=== PATIENT | female | born 1995 | race Hispanic/Latino ===

== ENCOUNTER 2024-03-09 23:09 | Emergency (ER) | payer OTHER, SELFPAY ==
--- OUTSIDE RECORDS SUMMARY | 2024-03-09 23:11 | XMS REPORT | Continuity of Care Document ---
Author Name Unknown Address [id number] thconnect Address [address] [address] [address] [place] [address] Care Team Providers Care Motor Brakeman Name Role Phone GC_GCBZW_Kadiyala_S Attending Clinician Unavaila ble GC_SWHAHL_Roman_M Attending Clinician Unavailabl e GC_GCBZW_Kadiyala_S Admitting Clinician Unavaila ble GC_SWHAHL_Roman_M Admitting Clinician Unavailabl e Payers Payer Name Policy Type Policy Number Effective Date Expirati on Date Source Encounters Start Date/Time End Date/Time Encounter Type Admission Type Attending Clinicians Care Facility Care Department Encounter ID Source 2023-04-17 00:00:00 2023-04-17 00:00:00 Outpatient GC_GCBZW_Ka diyala_S PRIV PRIV [id number] [facility] 2023-03-30 14:59:29 2023-03-30 14:59:29 Outpatient [facility] [id number] Jr Bo 2023-03-26 00:00:00 2023-03-26 00:00:00 Outpatient GC_SWHAHL_R oman_M PRIV PRIV [id number] [facility] 2023-03-20 00:00:00 2023-03-20 00:00:00 Outpatient GC_GCBZW_Ka diyala_S PRIV PRIV [id number] [facility] 2023-02-26 00:00:00 2023-02-26 00:00:00 Outpatient GC_SWHAHL_R oman_M PRIV PRIV [id number] [facility] 2023-02-20 00:00:00 2023-02-20 00:00:00 Outpatient GC_GCBZW_Ka diyala_S PRIV PRIV [id number] [facility] 2023-01-30 00:00:00 2023-01-30 00:00:00 Outpatient GC_SWHAHL_R oman_M PRIV PRIV [id number] [facility] 2023-01-22 00:00:00 2023-01-22 00:00:00 Outpatient GC_GCBZW_Ka diyala_S PRIV PRIV [id number] [facility] 2023-01-21 00:00:00 2023-01-21 00:00:00 Outpatient GC_SWHAHL_R oman_M PRIV PRIV [id number] [facility] 2023-01-14 00:00:00 2023-01-14 00:00:00 Outpatient GC_GCBZW_Ka diyala_S PRIV PRIV [id number] [facility] 2023-01-14 00:00:00 2023-01-14 00:00:00 Outpatient GC_GCBZW_Ka diyala_S PRIV PRIV [id number] [facility] 2023-01-06 00:00:00 2023-01-06 00:00:00 Outpatient GC_GCBZW_Ka diyala_S PRIV PRIV [id number] [facility] 2023-01-06 00:00:00 2023-01-06 00:00:00 Outpatient GC_GCBZW_Ka diyala_S PRIV PRIV [id number] [facility] 2023-01-06 00:00:00 2023-01-06 00:00:00 Outpatient GC_GCBZW_Ka diyala_S PRIV PRIV [id number] [facility] 2023-01-05 00:00:00 2023-01-05 00:00:00 Outpatient GC_GCBZW_Ka diyala_S PRIV PRIV [id number] [facility] 2022-12-18 00:00:00 2022-12-18 00:00:00 Outpatient GC_GCBZW_Ka byron_Maida [facility] [id number] [facility] 2022-04-20 09:06:25 2022-04-20 09:06:25 Outpatient [facility] [id number] Jr Bo
[2024-03-09] MEDS ORDERED: ONDANSETRON 4 MG (ODT) TAB ONE (23:21)
[2024-03-10 00:13] LABS: SARS-CoV-2 Antigen CONTROL BLUE LINE VIS/BG OK; SARS-CoV-2 Antigen Rapid Res Negative (Negative)
--- NOTE | 2024-03-10 00:54 | ER ---
Nurse's Notes [facility] Name: Bushra Quiros Age: 28 yrs Sex: Female : 1995 Arrival Date: 03/09/2024 Time: 23:09 Bed DX3 Private MD: Diagnosis: Acute upper respiratory infection, unspecified;Vomiting Presentation: 03/09 23:15 Chief complaint: Patient states: PT STATES AT APPROX BEGAN HAVING "FEVER", SORE THROAT, br2 NAUSEA/VOMITING (1), AB PAIN. Coronavirus screen: Client indicates they have traveled out of the [place] in the last 14 days. Ebola Screen: Patient denies exposure to infectious person. Initial Sepsis Screen: Does the patient meet any 2 criteria? No. Patient's initial sepsis screen is negative. Does the patient have a suspected source of infection? No. Patient's initial sepsis screen is negative. Risk Assessment: Do you want to hurt yourself or someone else? Patient reports no desire to harm self or others. Onset of symptoms was March 09, 2024 at 17:00. 23:15 Method Of Arrival: Ambulatory br2 23:15 Acuity: VALERY 3 br2 Triage Assessment: 23:15 General: Appears in no apparent distress. comfortable, Behavior is calm, cooperative. br2 Pain: Complains of pain in abdomen and back ALL OVER BODYACHES. EENT: No signs and/or symptoms were reported regarding the EENT system. Neuro: Level of Consciousness is awake, alert, obeys commands, Oriented to person, place, time, situation. Cardiovascular: Capillary refill < 3 seconds. Respiratory: Reports cough that is non-productive, Airway is patent Respiratory effort is even, unlabored, Respiratory pattern is regular, symmetrical. Historical: - Allergies: 23:18 No Known Allergies; br2 - Home Meds: 23:18 None [Active]; br2 - PMHx: 23:18 None; br2 - Immunization history:: Adult Immunizations up to date, Client reports receiving the 1st dose of the Covid vaccine, UNKNOWN. - Infectious Disease History:: Denies. - Social history:: Smoking status: Patient denies any tobacco usage or history of. Patient/guardian denies using alcohol, street drugs. - Family history:: not pertinent. - Hospitalizations: : No recent hospitalization is reported. Screenin:15 [facility] ED Fall Risk Assessment (Adult) History of falling in the last 3 months, br2 including since admission No falls in past 3 months (0 pts) Confusion or Disorientation No (0 pts) Intoxicated or Sedated No (0 pts) Impaired Gait No (0 pts) Mobility Assist Device Used No (0 pt) Altered Elimination No (0 pt) Score/Fall Risk Level 0 - 2 = Low Risk Oriented to surroundings. Abuse screen: Denies threats or abuse. Denies injuries from another. Nutritional screening: No deficits noted. Tuberculosis screening: No symptoms or risk factors identified. Assessment: 03/10 01:10 Reassessment: No changes from previously documented assessment. Patient and/or family vc1 updated on plan of care and expected duration. Pain level reassessed. Patient is alert, oriented x 3, equal unlabored respirations, skin warm/dry/pink. General: Appears in no apparent distress. uncomfortable, Behavior is calm, cooperative, appropriate for age. Pain: Complains of pain in back and abdomen. Neuro: Level of Consciousness is awake, alert, obeys commands, Oriented to person, place, time, situation, Appropriate for age. Cardiovascular: Heart tones S1 S2 present Patient's skin is warm and dry. Rhythm is sinus tachycardia. Respiratory: Airway is patent Respiratory effort is even, unlabored, Respiratory pattern is regular, symmetrical, Breath sounds are clear bilaterally. GI: No deficits noted. No signs and/or symptoms were reported involving the gastrointestinal system. : No deficits noted. No signs and/or symptoms were reported regarding the genitourinary system. EENT: Reports pain when swallowing. Vital Signs: 03/09 23:15 BP 132 / 88; Pulse 124; Resp 18; Temp 98.5(O); Pulse Ox 98% ; Weight 121.11 kg; Height br2 5 ft. 4 in. ; Pain 6/10; 03/10 01:00 BP 134 / 74; Pulse 102; Resp 18; Temp 99; Pulse Ox 99% ; vc1 03/09 23:15 Body Mass Index 45.83 (121.11 kg, 162.56 cm) br2 03/09 23:15 Pain Scale: Adult br2 ED Course: 03/09 23:11 Patient arrived in ED. jj6 23:14 Jean Juárez MD is Attending Physician. rn 23:15 Arm band placed on. br2 23:15 Patient has correct armband on for positive identification. Provided Education on: PLAN br2 OF CARE. 23:18 Triage completed. br2 23:24 SARS-COV-2 Antigen Rapid Sent. br2 23:24 Strep Sent. br2 23:24 Flu Sent. br2 03/10 00:10 XRAY Chest (1 view) In Process Unspecified. EDMS 01:09 No provider procedures requiring assistance completed. Patient did not have IV access vc1 during this emergency room visit. Administered Medications: 03/09 23:25 Drug: Ondansetron PO 4 mg PO once Route: PO; br2 03/10 01:00 Follow up: Response: No adverse reaction vc1 01:00 Drug: Promethazine PO 25 mg PO once Route: PO; vc1 01:00 Follow up: Response: Medication administered at discharge. vc1 01:00 Drug: Amoxicillin-Clavulanate PO 875 mg PO once Route: PO; vc1 01:00 Follow up: Response: Medication administered at discharge. vc1 Medication: 01:01 VIS not applicable for this client. vc1 Outcome: 00:54 Discharge ordered by . rn 01:10 Discharged to home ambulatory, vc1 01:10 Condition: good 01:10 Discharge instructions given to patient, Instructed on discharge instructions, follow up and referral plans. medication usage, Demonstrated understanding of instructions, follow-up care, medications, Prescriptions given X 2, 01:11 Patient left the ED. vc1 Signatures: Dispatcher [employer] EDOH Jean Juárez MD MD rn Jeffries, Jennifer jj6 Velvet Aldana RN RN vc1 Denia Holley RN RN br2
--- NOTE | 2024-03-10 00:54 | EDPHYS ---
Physician Documentation [facility] Name: Bushra Quiros Age: 28 yrs Sex: Female : 1995 Arrival Date: 03/09/2024 Time: 23:09 Bed DX3 Private MD: ED Physician Jean Juárez HPI: 03/09 23:44 This 28 yrs old Female presents to ER via Ambulatory with complaints of cough, rn sore throat. 23:44 The patient or guardian reports cough, flu symptoms. Onset: The symptoms/episode rn began/occurred today. Severity of symptoms: At their worst the symptoms were mild, in the emergency department the symptoms are unchanged. Associated signs and symptoms: Pertinent positives: fever, rhinorrhea, sore throat, vomiting, Pertinent negatives: chest pain, diarrhea. The patient has not experienced similar symptoms in the past. Patient reports feels like she got sick today. Reports subjective fever and chills, sore throat, cough, myalgias, nausea and vomited 1 time. Denies . Reports no chance of . No abdominal pain. No shortness of breath.. Historical: - Allergies: 23:18 No Known Allergies; br2 - Home Meds: 23:18 None [Active]; br2 - PMHx: 23:18 None; br2 - Immunization history:: Adult Immunizations up to date, Client reports receiving the 1st dose of the Covid vaccine, UNKNOWN. - Infectious Disease History:: Denies. - Social history:: Smoking status: Patient denies any tobacco usage or history of. Patient/guardian denies using alcohol, street drugs. - Family history:: not pertinent. - Hospitalizations: : No recent hospitalization is reported. ROS: 23:44 Constitutional: Positive for subjective fever and chills Eyes: Negative for injury, rn pain, redness, and discharge, Cardiovascular: Negative for chest pain, palpitations, and edema, Respiratory: Positive for cough, negative for shortness of breath Abdomen/GI: Negative for abdominal pain, positive for vomiting x 1 Back: Negative for injury and pain, : Negative for injury, bleeding, discharge, and swelling, MS/Extremity: Negative for injury and deformity, Skin: Negative for injury, rash, and discoloration, Neuro: Positive for headache and generalized malaise Exam: 23:44 Constitutional: This is a well developed, well nourished patient who is awake, alert, rn and in no acute distress. Cardiovascular: Tachycardic, regular. No pulse deficits. Respiratory: No increased work of breathing, no retractions or nasal flaring. Abdomen/GI: Soft, nontender, negative Wade, no focal tenderness or distention noted. No peritoneal signs or guarding noted. MS/ Extremity: Pulses equal, no cyanosis. Neuro: Awake and alert, GCS 15 was given Vital Signs: 23:15 BP 132 / 88; Pulse 124; Resp 18; Temp 98.5(O); Pulse Ox 98% ; Weight 121.11 kg; Height br2 5 ft. 4 in. ; Pain 6/10; 03/10 01:00 BP 134 / 74; Pulse 102; Resp 18; Temp 99; Pulse Ox 99% ; vc1 03/09 23:15 Body Mass Index 45.83 (121.11 kg, 162.56 cm) br2 03/09 23:15 Pain Scale: Adult br2 MDM: 03/09 23:14 Medical Screening Exam initiated rn 03/10 00:54 Differential Diagnosis: Bronchitis Influenza Upper Respiratory Infection Pharyngitis rn Viral Syndrome Pneumonia. Data reviewed: vital signs, nurses notes, lab test result(s), radiologic studies, plain films, and as a result, I will discharge patient. Counseling: I had a detailed discussion with the patient and/or guardian regarding the historical points, exam findings, and any diagnostic results supporting the discharge/admit diagnosis, lab results, radiology results, the need for outpatient follow up, to return to the emergency department if symptoms worsen or persist or if there are any questions or concerns that arise at home. Response to treatment: the patient's symptoms have mildly improved after treatment, and as a result, I will discharge patient. Special discussion: I discussed with the patient/guardian in detail that at this point there is no indication for admission to the hospital. It is understood, however, that if the symptoms persist or worsen the patient needs to return immediately for re-evaluation. ED course: Upon repeat evaluation patient reports still feeling slightly nauseated. Phenergan ordered. Repeat abdominal exam is benign without abdominal tenderness. Patient still denies abdominal pain. Patient has had appendectomy in the past and does not sound like a gallbladder issue. Will discharge home with antibiotics and as needed nausea medication with return precautions.. 03/09 23:23 Order name: Flu; Complete Time: 00:42 rn 03/09 23:23 Order name: Strep; Complete Time: 00:21 rn 03/09 23:23 Order name: SARS-COV-2 Antigen Rapid; Complete Time: 00:21 rn 03/10 00:16 Order name: Throat Culture EDMS 03/09 23:17 Order name: XRAY Chest (1 view) rn Administered Medications: 03/09 23:25 Drug: Ondansetron PO 4 mg PO once Route: PO; br2 03/10 01:00 Follow up: Response: No adverse reaction vc1 01:00 Drug: Promethazine PO 25 mg PO once Route: PO; vc1 01:00 Follow up: Response: Medication administered at discharge. vc1 01:00 Drug: Amoxicillin-Clavulanate PO 875 mg PO once Route: PO; vc1 01:00 Follow up: Response: Medication administered at discharge. vc1 Disposition Summary: 03/10/24 00:54 Discharge Ordered Notes: Location: Home rn Problem: new rn Symptoms: have improved rn Condition: Stable rn Diagnosis - Acute upper respiratory infection, unspecified rn - Vomiting rn Followup: rn - With: Private Physician - When: As needed - Reason: Recheck today's complaints, Re-evaluation by your physician Discharge Instructions: - Discharge Summary Sheet rn - Nausea and Vomiting, Adult rn - Upper Respiratory Infection, Adult rn Forms: - Medication Reconciliation Form rn - Antibiotic sleeve turner - Prescription Opioid Use rn - Patient Portal Instructions rn - Leadership Thank You Letter rn - Work release form vc1 Prescriptions: - ondansetron 4 mg Oral Tablet,disintegrating - take 1 tablet ORAL route every 8 hours As needed; 12 tablet; Refills: 0, rn Product Selection Permitted - Augmentin 875-125 mg Oral Tablet - take 1 tablet ORAL route every 12 hours for 10 days; 20 tablet; Refills: 0, rn Product Selection Permitted Signatures: Dispatcher [employer] Jean Teran MD MD rn Calcote, Vanessa RN RN vc1 Denia Holley RN RN br2 Corrections: (The following items were deleted from the chart) 00:22 03/09 23:44 Constitutional: This is a well developed, well nourished patient who is rn awake, alert, and in no acute distress. Cardiovascular: Tachycardic, regular. No pulse deficits. Respiratory: No increased work of breathing, no retractions or nasal flaring. Abdomen/GI: Soft, nontender MS/ Extremity: Pulses equal, no cyanosis. Neuro: Awake and alert, GCS 15 was given rn
[2024-03-10] MEDS ORDERED: PROMETHAZINE 25 MG TABLET ONE (00:55)
[2024-03-10] MEDS ORDERED: AMOX/K CLAV 875 MG TAB ONE (00:55)
[2024-03-10 04:34] VITALS: BP 134/74; TEMP 99; O2SAT 99
--- NOTE | 2024-03-10 05:50 | RAD REPORT ---
EXAM DESCRIPTION: Chest Single View CLINICAL HISTORY: DYSPNEA COMPARISON: None TECHNIQUE: Single AP view of the chest. FINDINGS: Lung volumes adequate. Cardiac silhouette is normal in size. No pneumothorax. No large pleural effusion. No focal consolidation. No acute bony finding. IMPRESSION: No evidence of acute cardiopulmonary disease. Electronically signed by: Yari Humphreys MD 03/10/2024 12:42 AM [facility] [id number] Due to temporary technical issues with the PACS/[employer] reporting system, reports are being kaylen d by the in-house radiologist without review as a courtesy to ensure prompt reporting the interpreting radiologist is fully responsible for the content of the report. Transcribed Date/Time: 03/10/2024 5:49 AM
== END 2024-03-10 01:11 | disposition home or self-care (01) ==
LOC: ER 23:09
DX: J06.9 Acute upper respiratory infection, unspecified (principal); Z11.52 Encounter for screening for COVID-19
CPT/HCPCS: 36415; 71045; 87070; 87081; 87804; 87811; 99284; Q0162; Q0169